=== PATIENT | female | born 1980 | race Caucasian/White ===

== ENCOUNTER 2017-02-20 06:46 | Emergency (ER) | payer BC ==
[2017-02-20 09:05] VITALS: BP 119/79
== END 2017-02-20 10:07 | disposition home or self-care (01) ==
LOC: ED 06:46
DX: S13.4XXA Sprain of ligaments of cervical spine, initial encounter (principal); S20.211A Contusion of right front wall of thorax, initial encounter; E11.9 Type 2 diabetes mellitus without complications; V49.40XA Driver injured in collision with unspecified motor vehicles in traffic accident, initial encounter; W22.10XA Striking against or struck by unspecified automobile airbag, initial encounter; Z79.84 Long term (current) use of oral hypoglycemic drugs; Y93.89 Activity, other specified; Y99.8 Other external cause status; Y92.89 Other specified places as the place of occurrence of the external cause

== ENCOUNTER 2017-09-19 06:36 | Emergency (ER) | payer BC ==
[2017-09-19 07:03] VITALS: BP 118/75
== END 2017-09-19 07:51 | disposition home or self-care (01) ==
LOC: ED 06:36
DX: G51.0 Bell's palsy (principal); E11.9 Type 2 diabetes mellitus without complications; Z79.84 Long term (current) use of oral hypoglycemic drugs
CPT/HCPCS: 82962